=== PATIENT | male | born 1945 | race Caucasian/White ===

== ENCOUNTER 2025-04-29 02:30 | Inpatient (IN) | payer MEDICARE, BC ==
[2025-04-29 03:01] LABS: APPEARANCE,URINE CLEAR (Clear); GLUCOSE,URINE NEGATIVE (Negative); OCCULT BLOOD,URINE NEGATIVE (Negative)
[2025-04-29 03:12] LABS: BASOPHILS ABSOLUTE AUTO 0.0 K/mm3 (0.0-0.2); BASOPHILS PERCENT AUTO 0.3 % (0.0-1.0); EOSINOPHILS ABSOLUTE AUTO 0.0 K/mm3 (0.0-0.4); EOSINOPHILS PERCENT AUTO 0.4 % (0.0-6.0); IMMATURE GRAN ABSOLUTE AUTO 0.03 K/mm3 (0.00-0.05); IMMATURE GRAN PERCENT AUTO 0.4 % (0.0-0.4); LYMPHOCYTES ABSOLUTE AUTO 0.3 K/mm3 (1.0-4.8); LYMPHOCYTES PERCENT AUTO 3.7 % (24.0-44.0); MEAN PLATELET VOLUME 9.2 fl (9.4-12.4); MONOCYTES ABSOLUTE AUTO 0.2 K/mm3 (0.0-0.8); MONOCYTES PERCENT AUTO 2.3 % (0.0-8.0); NEUTROPHILS ABSOLUTE AUTO 7.4 K/mm3 (1.8-7.7); NEUTROPHILS PERCENT AUTO 92.9 % (41.0-71.0); NRBC ABSOLUTE 0.00 (0.00-0.02); NRBC PERCENT 0.0 % (0.0-0.2); PLATELET COUNT,PLT 180 K/mm3 (150-400); RED BLOOD CELL COUNT 4.31 M/mm3 (4.52-5.90); WHITE BLOOD CELL COUNT,WBC 7.93 K/mm3 (3.9-11.3)
[2025-04-29 03:35] LABS: A/G RATIO 1.1 (1-2); ALANINE AMINOTRANSFERASE,ALT 33.0 U/L (16-63); ASPARTATE AMNIOTRANSFERASE,AST 19.0 U/L (15-37); BILIRUBIN TOTAL 0.8 mg/dL (0.2-1.0); BLOOD UREA NITROGEN,BUN 21.0 mg/dL (7-18); CARBON DIOXIDE,CO2 27.0 mEq/L (21-32); CHLORIDE,CL 106.0 mEq/L (98-107); CREATININE 1.4 mg/dL (0.7-1.3); EST CRCL DRUG DOSING (CG) 44.65 mL/min; ESTIMATED GFR 50.0 mL/min (>60); GLUCOSE RANDOM 132.0 mg/dL (70-99); POTASSIUM,K 4.0 mEq/L (3.5-5.1); PROTEIN TOTAL,TP 6.4 g/dl (6.4-8.2); SODIUM,NA 140.0 mEq/L (136-145)
[2025-04-29 03:38] LABS: CORONAVIRUS COVID-19 NAA NEGATIVE (NEGATIVE); INFLUENZA A NAA NEGATIVE (NEGATIVE); RESPIRATORY SYNCYTIAL VIR NAA NEGATIVE (NEGATIVE)
[2025-04-29] MEDS ORDERED: Sodium Chloride 0.9% 10 ML Syringe FLUSH PRN (04:22)
[2025-04-29] MEDS: Iopamidol 755 Mg/ML 100 ML Bottle IVPUSH ONE (04:48)
[2025-04-29] MEDS: Sodium Chloride 0.9% 10 ML Syringe FLUSH PRN (04:48)
[2025-04-29] MEDS ORDERED: Acetaminophen/oxyCODONE 325-5 MG Tab PO PRN (06:31)
[2025-04-29] MEDS ORDERED: Ondansetron 4 MG Tab.DIS PO PRN (06:31)
[2025-04-29] MEDS: methylPREDNISolone Sodium Succinate 125 MG/2 ML SDV IVPUSH ONE (06:40)
[2025-04-29 06:59] LABS: BASOPHILS ABSOLUTE AUTO 0.0 K/mm3 (0.0-0.2); BASOPHILS PERCENT AUTO 0.3 % (0.0-1.0); EOSINOPHILS ABSOLUTE AUTO 0.0 K/mm3 (0.0-0.4); EOSINOPHILS PERCENT AUTO 0.1 % (0.0-6.0); IMMATURE GRAN ABSOLUTE AUTO 0.05 K/mm3 (0.00-0.05); IMMATURE GRAN PERCENT AUTO 0.3 % (0.0-0.4); LYMPHOCYTES ABSOLUTE AUTO 0.4 K/mm3 (1.0-4.8); LYMPHOCYTES PERCENT AUTO 2.4 % (24.0-44.0); MEAN PLATELET VOLUME 9.5 fl (9.4-12.4); MONOCYTES ABSOLUTE AUTO 1.1 K/mm3 (0.0-0.8); MONOCYTES PERCENT AUTO 7.6 % (0.0-8.0); NEUTROPHILS ABSOLUTE AUTO 12.9 K/mm3 (1.8-7.7); NEUTROPHILS PERCENT AUTO 89.3 % (41.0-71.0); NRBC ABSOLUTE 0.00 (0.00-0.02); NRBC PERCENT 0.0 % (0.0-0.2); PLATELET COUNT,PLT 185 K/mm3 (150-400); RED BLOOD CELL COUNT 4.17 M/mm3 (4.52-5.90); WHITE BLOOD CELL COUNT,WBC 14.41 K/mm3 (3.9-11.3)
[2025-04-29 07:22] LABS: A/G RATIO 1.1 (1-2); ALANINE AMINOTRANSFERASE,ALT 30.0 U/L (16-63); ASPARTATE AMNIOTRANSFERASE,AST 18.0 U/L (15-37); BILIRUBIN TOTAL 0.9 mg/dL (0.2-1.0); BLOOD UREA NITROGEN,BUN 22.0 mg/dL (7-18); CARBON DIOXIDE,CO2 26.0 mEq/L (21-32); CHLORIDE,CL 105.0 mEq/L (98-107); CREATININE 1.6 mg/dL (0.7-1.3); EST CRCL DRUG DOSING (CG) 39.07 mL/min; ESTIMATED GFR 43.0 mL/min (>60); GLUCOSE RANDOM 139.0 mg/dL (70-99); POTASSIUM,K 4.4 mEq/L (3.5-5.1); PROTEIN TOTAL,TP 6.1 g/dl (6.4-8.2); SODIUM,NA 139.0 mEq/L (136-145)
[2025-04-29] MEDS ORDERED: Acetaminophen/HYDROcodone 325-10 MG Tab PO PRN ×2 (16:44)
[2025-04-29] MEDS ORDERED: Sennosides/Docusate Sodium 50-8.6 MG Tab PO PRN (16:49)
[2025-04-30 05:52] LABS: BASOPHILS ABSOLUTE AUTO 0.0 K/mm3 (0.0-0.2); BASOPHILS PERCENT AUTO 0.1 % (0.0-1.0); EOSINOPHILS ABSOLUTE AUTO 0.0 K/mm3 (0.0-0.4); EOSINOPHILS PERCENT AUTO 0.0 % (0.0-6.0); IMMATURE GRAN ABSOLUTE AUTO 0.09 K/mm3 (0.00-0.05); IMMATURE GRAN PERCENT AUTO 0.6 % (0.0-0.4); LYMPHOCYTES ABSOLUTE AUTO 0.9 K/mm3 (1.0-4.8); LYMPHOCYTES PERCENT AUTO 5.8 % (24.0-44.0); MEAN PLATELET VOLUME 9.6 fl (9.4-12.4); MONOCYTES ABSOLUTE AUTO 1.3 K/mm3 (0.0-0.8); MONOCYTES PERCENT AUTO 8.4 % (0.0-8.0); NEUTROPHILS ABSOLUTE AUTO 13.2 K/mm3 (1.8-7.7); NEUTROPHILS PERCENT AUTO 85.1 % (41.0-71.0); NRBC ABSOLUTE 0.00 (0.00-0.02); NRBC PERCENT 0.0 % (0.0-0.2); PLATELET COUNT,PLT 197 K/mm3 (150-400); RED BLOOD CELL COUNT 4.15 M/mm3 (4.52-5.90); WHITE BLOOD CELL COUNT,WBC 15.55 K/mm3 (3.9-11.3)
[2025-04-30 06:15] LABS: A/G RATIO 0.9 (1-2); ALANINE AMINOTRANSFERASE,ALT 37.0 U/L (16-63); ASPARTATE AMNIOTRANSFERASE,AST 20.0 U/L (15-37); BILIRUBIN TOTAL 0.5 mg/dL (0.2-1.0); BLOOD UREA NITROGEN,BUN 25.0 mg/dL (7-18); CARBON DIOXIDE,CO2 26.0 mEq/L (21-32); CHLORIDE,CL 107.0 mEq/L (98-107); CREATININE 1.3 mg/dL (0.7-1.3); EST CRCL DRUG DOSING (CG) 48.09 mL/min; ESTIMATED GFR 55.0 mL/min (>60); GLUCOSE RANDOM 162.0 mg/dL (70-99); PHOSPHORUS 3.0 mg/dL (2.6-4.7); POTASSIUM,K 4.6 mEq/L (3.5-5.1); PROTEIN TOTAL,TP 6.2 g/dl (6.4-8.2); SODIUM,NA 140.0 mEq/L (136-145)
[2025-04-30 13:24] VITALS: BP 122/69; PULSE 56
== END 2025-04-30 11:57 | disposition home or self-care (01) | DRG 205 ==
LOC: JD.ED 02:30 → JD.MS 06:29
PROVIDERS: ADMIT Family Medicine; ATTEND Student in an Organized Health Care Education/Training Program
DX: J68.0 Bronchitis and pneumonitis due to chemicals, gases, fumes and vapors (principal); J96.01 Acute respiratory failure with hypoxia; K86.2 Cyst of pancreas; J18.9 Pneumonia, unspecified organism; M19.90 Unspecified osteoarthritis, unspecified site; E78.00 Pure hypercholesterolemia, unspecified; K21.9 Gastro-esophageal reflux disease without esophagitis; N20.0 Calculus of kidney; H54.7 Unspecified visual loss; Z96.649 Presence of unspecified artificial hip joint; Z87.891 Personal history of nicotine dependence; Z88.8 Allergy status to other drugs, medicaments and biological substances; Z79.899 Other long term (current) drug therapy; Z98.890 Other specified postprocedural states; Z88.0 Allergy status to penicillin
CPT/HCPCS: 36415; 71045; 71275; 80053 ×2; 81003; 83735; 83880; 85025 ×2; 85379; 86140; 87637; 93005; 99285; A9270; Q9967; 84100; 94761; J0456; J0696; J1650; J2919; J7050; J7512